=== PATIENT | female | born 1990 | race Caucasian/White ===

== ENCOUNTER 2018-01-03 12:46 | Emergency (ER) | payer BC, OTHER ==
[~2018-01-03] VITALS: Ht 170.2 cm; Wt 77.1 kg
[~2018-01-03 12:46] MED LIST: ACEBUTCAFT PO; ACET500 PO; CEPH500 PO; HYDACE5325 PO; OXYACE5T PO; PREN-16 PO; PROC5 PO; RXHYD5325 PO
[2018-01-03] MEDS ORDERED: CYCL10 PO (13:43)
[2018-01-03] MEDS ORDERED: Voltaren100 GM TOP (13:43)
== END 2018-01-03 13:57 | disposition home or self-care (01) ==
LOC: ER 12:46
DX: G89.29 Other chronic pain (principal); M54.5 Low back pain; F17.200 Nicotine dependence, unspecified, uncomplicated
CPT/HCPCS: 96372; 99283; J1885

== ENCOUNTER → 2019-08-30 | Outpatient (CLI) | payer OTHER ==
[~2019-08-30] MED LIST changes: +CYCL10 PO; +Voltaren100 GM TOP
== END | disposition home or self-care (01) ==
LOC: LAB 11:23 → LAB SHORT 11:23
PROVIDERS: Obstetrics & Gynecology
DX: Z34.82 Encounter for supervision of other normal pregnancy, second trimester (principal)
CPT/HCPCS: G0123

== ENCOUNTER → 2020-02-12 | Outpatient (CLI) | payer OTHER ==
[~2020-02-12] MED LIST changes: +DOCU100 PO; +IBUP800 PO; +PRENATAL TABLE1 EAC2
== END | disposition home or self-care (01) ==
LOC: LAB SHORT 16:09 → LAB 16:09
DX: Z34.83 Encounter for supervision of other normal pregnancy, third trimester (principal)
CPT/HCPCS: 87081; 87653

== ENCOUNTER 2020-02-29 05:00 | Inpatient (IN) | payer OTHER ==
[~2020-02-29] VITALS: Ht 170.2 cm; Wt 85.0 kg
[~2020-02-29 05:00] MED LIST changes: -DOCU100 PO; -IBUP800 PO; -PRENATAL TABLE1 EAC2
[2020-02-29] MEDS ORDERED: PRENATAL TABLE1 EAC2 ×2 (05:32)
[2020-02-29 05:48] LABS: BASOPHILS ABSOLUTE AUTO 0.07 K/mm3 (0.00-0.23); BASOPHILS PERCENT AUTO 0 % (0-2); EOSINOPHILS ABSOLUTE AUTO 0.18 K/mm3 (0.00-0.68); EOSINOPHILS PERCENT AUTO 1 % (0-6); Hematocrit 33.2 % (33.0-51.0); Hemoglobin 11.2 g/dL (11.5-16.0); IMMATURE GRAN ABSOLUTE AUTO 0.11 K/mm3 (0.00-0.10); IMMATURE GRAN PERCENT AUTO 1 % (0-1); LYMPHOCYTES ABSOLUTE AUTO 2.43 K/mm3 (0.84-5.20); LYMPHOCYTES PERCENT AUTO 15 % (21-46); MONOCYTES ABSOLUTE AUTO 0.88 K/mm3 (0.16-1.47); MONOCYTES PERCENT AUTO 6 % (4-13); Mean Corpuscular HGB 33.4 pg (26.0-34.0); Mean Corpuscular HGB Conc 33.7 g/dL (31.5-36.5); Mean Corpuscular Volume 99 fL (80-100); NEUTROPHILS ABSOLUTE AUTO 12.35 K/mm3 (1.96-9.15); NEUTROPHILS PERCENT AUTO 77 % (41-73); Platelet Count 190 K/mm3 (150-400); RDW Coefficient Variation 13.5 % (11.7-14.2); Red Blood Cell Count 3.35 M/mm3 (3.80-5.20); White Blood Cell Count 16.02 K/mm3 (4.00-11.30)
[2020-02-29 06:33] LABS: Influenza A, PCR Negative (NEGATIVE); Influenza B, PCR Negative (NEGATIVE); Resp Syncytial Virus, PCR Negative (NEGATIVE); SARS-Cov-2 (COVID-19) PCR, MMC Negative (NEGATIVE)
[2020-03-01] MEDS ORDERED: DOCU100 PO ×2 (13:17)
[2020-03-01] MEDS ORDERED: IBUP800 PO ×2 (13:17)
--- NOTE | 2020-03-01 14:06 | NUR ---
PT GIVEN WRITTEN AND VERBAL DC INSTRUCTIONS. VERBALIZE UNDERSTANDING AND QUESTIONS ANSWERED. WILL FOLLOW UP WITH DR ROLDAN WITHIN A FEW WEEKS AND WILL RETURN TO [facility] SCHEDULED PENDING TSB RESULTS. JOE QUEEN LANOLIN AND CASTOR OIL GIVEN PER PT REQUEST.
--- NOTE | 2020-03-01 20:58 | NUR ---
2054 discharged ambulatory, with and daughter, to private auto to home.
== END 2020-03-01 20:55 | disposition home or self-care (01) | DRG 807 ==
LOC: OBS 05:00 → BC 05:05 → OBS 05:08 → BC 05:12
PROVIDERS: ADMIT Obstetrics & Gynecology
PROC: 10E0XZZ Delivery of Products of Conception, External Approach (ICD-10-PCS; principal; 2020-02-29)
PROC: 3E033VJ Introduction of Other Hormone into Peripheral Vein, Percutaneous Approach (ICD-10-PCS; 2020-02-29)
PROC: 3E0R3BZ Introduction of Anesthetic Agent into Spinal Canal, Percutaneous Approach (ICD-10-PCS; 2020-02-29)
PROC: 00HU33Z Insertion of Infusion Device into Spinal Canal, Percutaneous Approach (ICD-10-PCS; 2020-02-29)
DX: O36.5930 Maternal care for other known or suspected poor fetal growth, third trimester, not applicable or unspecified (principal); Z37.0 Single live birth; Z3A.39 39 weeks gestation of pregnancy; O71.82 Other specified trauma to perineum and vulva; Z87.891 Personal history of nicotine dependence
CPT/HCPCS: 0241U; 36415; 51702; 85025; 86850; 86900; 86901; A9270; J1885; J2001; J2405; J2590; J3010; J7120